=== PATIENT | female | born 2000 ===

== ENCOUNTER → 2024-04-08 | Outpatient (CLI) | payer OTHER ==
[2024-04-08 14:05] LABS: Source, Urine Clean Catch
[2024-04-08 16:47] LABS: Appearance, Urine Cloudy (Clear); Bilirubin, Urine Neg (Neg); Blood, Urine 1+ (Neg); Color, Urine Yellow (P-Yellow); Glucose Qualitative, Urine Neg (Neg); Ketones, Urine 2+ (Neg); Leukocyte Esterase, Urine Neg (Neg); Nitrite, Urine Neg (Neg); Protein, Urine 1+ (Neg); Urobilinogen, Urine NORM (Normal)
[2024-04-08 16:48] LABS: BASOPHILS ABSOLUTE AUTO 0.04 K/mm3 (0.00-0.23); BASOPHILS PERCENT AUTO 1 % (0-2); EOSINOPHILS ABSOLUTE AUTO 0.08 K/mm3 (0.00-0.68); EOSINOPHILS PERCENT AUTO 1 % (0-6); Hematocrit 37.5 % (33.0-51.0); Hemoglobin 12.8 g/dL (11.5-16.0); IMMATURE GRAN ABSOLUTE AUTO 0.02 K/mm3 (0.00-0.10); IMMATURE GRAN PERCENT AUTO 0 % (0-1); LYMPHOCYTES ABSOLUTE AUTO 1.72 K/mm3 (0.84-5.20); LYMPHOCYTES PERCENT AUTO 22 % (21-46); MONOCYTES ABSOLUTE AUTO 0.32 K/mm3 (0.16-1.47); MONOCYTES PERCENT AUTO 4 % (4-13); Mean Corpuscular HGB Conc 34.1 g/dL (31.5-36.5); Mean Corpuscular Volume 91 fL (80-100); NEUTROPHILS PERCENT AUTO 72 % (41-73); Platelet Count 320 K/mm3 (150-400); RDW Coefficient Variation 12.2 % (11.7-14.2); RDW Standard Deviation 40.2 fL (35.1-46.3); Red Blood Cell Count 4.13 M/mm3 (3.80-5.20); White Blood Cell Count 7.68 K/mm3 (4.00-11.30)
[2024-04-08 17:06] LABS: Bacteria Many /hpf; Red Blood Cells, Urine 0-2 /hpf (0-2); Squamous Epithelial Cells Few /hpf (Few); White Blood Cells, Urine 0-2 /hpf (0-5)
[2024-04-10 09:12] LABS: HEPATITIS B SURFACE ANTIGEN Negative (Negative)
[2024-04-10 10:31] LABS: HEPATITIS C AB CIA INTERP Negative (Negative); HEPATITIS C ANTIBODY CIA INDEX <0.02 IV
[2024-04-10 12:28] LABS: HIV 1,2 COMBO ANTIGEN/ANTIBODY Negative (Negative)
== END | disposition home or self-care (01) ==
LOC: LAB 14:02 → LAB SHORT 14:02
PROVIDERS: Registered Nurse Community Health
DX: Z34.91 Encounter for supervision of normal pregnancy, unspecified, first trimester (principal)
CPT/HCPCS: 81001; 83036; 84443; 86803; 87086; 87340; 87389

== ENCOUNTER → 2024-04-25 | Outpatient (CLI) | payer OTHER ==
[2024-04-28 10:12] LABS: APTIMA MEDIA TYPE Urine; C. TRACHOMATIS BY TMA Negative (Negative); N. GONORRHOEAE BY TMA Negative (Negative); SPECIMEN SOURCE Urine
== END | disposition home or self-care (01) ==
LOC: LAB SHORT 15:32 → LAB 15:32
PROVIDERS: Registered Nurse Community Health
DX: Z34.92 Encounter for supervision of normal pregnancy, unspecified, second trimester (principal)
CPT/HCPCS: 87491; 87591

== ENCOUNTER → 2024-09-24 | Outpatient (CLI) | payer OTHER | LOC: LAB 17:00 → LAB SHORT 17:00 | DX: O24.112 Pre-existing type 2 diabetes mellitus, in pregnancy, second trimester (principal) | CPT/HCPCS: 83036 ==

== ENCOUNTER → 2024-09-30 | Outpatient (CLI) | payer OTHER | END | disposition home or self-care (01) | LOC: LAB SHORT 11:49 → LAB 11:49 | DX: Z34.93 Encounter for supervision of normal pregnancy, unspecified, third trimester (principal) | CPT/HCPCS: 87081; 87150 ==

== ENCOUNTER 2024-10-21 03:15 | Inpatient (IN) | payer OTHER ==
[2024-10-21] VITALS (8 sets, daily range): BP systolic 113–133; BP diastolic 58–83
[~2024-10-21] VITALS: Ht 162.6 cm; Wt 118.1 kg
[2024-10-21] MEDS ORDERED: HYDROcodone 5-APAP 325 TAB PO ONE (05:25)
[2024-10-21] MEDS ORDERED: Misoprostol 200 MCG Tab BC PRN (07:50)
[2024-10-21] MEDS ORDERED: OXYTOCIN/RINGER'S LACTATE 500 ML IV PRN (07:50)
[2024-10-21] MEDS ORDERED: Methylergonovine Maleate 0.2MG / ML 1ML Amp IM PRN (07:50)
[2024-10-21] MEDS ORDERED: ePHEDrine Sulfate 50 MG/ML 1ML Injection XX PRN (07:50)
[2024-10-21] MEDS ORDERED: Carboprost Tromethamine 250 MCG/ML 1ML Amp IM PRN (07:50)
[2024-10-21] MEDS ORDERED: Oxytocin 10 Unit / ML Vial IM PRN (07:50)
[2024-10-21] MEDS ORDERED: Misoprostol 200 MCG Tab PR PRN (07:50)
[2024-10-21] MEDS ORDERED: FentaNYL 2mcg/ml-Bup 0.1% Epd 250 ML EPI PRN (07:50)
[2024-10-21] MEDS ORDERED: Ondansetron HCl 2 MG / ML 2ML Vial IV PRN (07:50)
[2024-10-21] MEDS ORDERED: Acetaminophen 500 MG Tab PO PRN (07:50)
[2024-10-21] MEDS ORDERED: Lactated Ringer's 1,000 ML IV PRN ×3 (07:50→07:55)
[2024-10-21] MEDS ORDERED: Calcium Carbonate 500 MG Tab Chew PO PRN (08:00)
[2024-10-21] MEDS ORDERED: Tranexamic Acid 100 ML IV PRN (08:00)
[2024-10-21 08:09] LABS: BASOPHILS ABSOLUTE AUTO 0.02 K/mm3 (0.00-0.23); BASOPHILS PERCENT AUTO 0 % (0-2); EOSINOPHILS ABSOLUTE AUTO 0.04 K/mm3 (0.00-0.68); EOSINOPHILS PERCENT AUTO 0 % (0-6); Hemoglobin 12.8 g/dL (11.5-16.0); IMMATURE GRAN ABSOLUTE AUTO 0.03 K/mm3 (0.00-0.10); IMMATURE GRAN PERCENT AUTO 0 % (0-1); LYMPHOCYTES ABSOLUTE AUTO 1.93 K/mm3 (0.84-5.20); LYMPHOCYTES PERCENT AUTO 19 % (21-46); MONOCYTES ABSOLUTE AUTO 0.61 K/mm3 (0.16-1.47); MONOCYTES PERCENT AUTO 6 % (4-13); Mean Corpuscular HGB 31.7 pg (26.0-34.0); Mean Corpuscular HGB Conc 34.6 g/dL (31.5-36.5); Mean Corpuscular Volume 92 fL (80-100); Mean Platelet Volume 9.8 fL (9.1-12.4); NEUTROPHILS ABSOLUTE AUTO 7.38 K/mm3 (1.96-9.15); NEUTROPHILS PERCENT AUTO 74 % (41-73); Platelet Count 272 K/mm3 (150-400); RDW Coefficient Variation 13.2 % (11.7-14.2); Red Blood Cell Count 4.04 M/mm3 (3.80-5.20); White Blood Cell Count 10.01 K/mm3 (4.00-11.30)
[2024-10-21] MEDS ORDERED: PRENATAL TABLE1 EAC2 PO (08:33)
[2024-10-21] MEDS ORDERED: SERT25 PO (08:34)
[2024-10-21] MEDS ORDERED: METF500 PO (08:34)
[2024-10-21] MEDS ORDERED: [UNRECOGNIZED DRUG - OTHER] PO (08:35)
[2024-10-21] MEDS ORDERED: Aspir 8181 MG PO (08:35)
[2024-10-21] MEDS ORDERED: FentaNYL Citrate 50 MCG/ML 2 ML Injection IV PRN (10:15)
[2024-10-21] MEDS ORDERED: Morphine Sulfate 10 MG/ML 1MLSYR IM ONE (13:15)
[2024-10-21] MEDS ORDERED: Promethazine HCl 25 MG Tab PO ONE (13:15)
[2024-10-21] MEDS ORDERED: Lactated Ringer's 1,000 ML IV SCH (19:15)
[2024-10-21] MEDS ORDERED: Zolpidem Tartrate 5 MG Tab PO PRN (19:15)
[2024-10-21] MEDS ORDERED: DiphenhydrAMINE HCl 50 MG Cap PO PRN (19:20)
[2024-10-21] MEDS ORDERED: MetFORMIN HCl 500 mg PO SCH (21:00)
[2024-10-21] MEDS ORDERED: Insulin NPH 100 Unit / ML 10ML Vial SC SCH (21:00)
[2024-10-22] VITALS (46 sets, daily range): BP systolic 78–138; BP diastolic 43–90
[2024-10-22] MEDS ORDERED: OXYTOCIN/RINGER'S LACTATE 500 ML IV SCH (06:00)
[2024-10-22 09:48] LABS: BASOPHILS ABSOLUTE AUTO 0.03 K/mm3 (0.00-0.23); BASOPHILS PERCENT AUTO 0 % (0-2); EOSINOPHILS ABSOLUTE AUTO 0.04 K/mm3 (0.00-0.68); EOSINOPHILS PERCENT AUTO 0 % (0-6); Hemoglobin 12.9 g/dL (11.5-16.0); IMMATURE GRAN ABSOLUTE AUTO 0.02 K/mm3 (0.00-0.10); IMMATURE GRAN PERCENT AUTO 0 % (0-1); LYMPHOCYTES ABSOLUTE AUTO 1.66 K/mm3 (0.84-5.20); LYMPHOCYTES PERCENT AUTO 17 % (21-46); MONOCYTES ABSOLUTE AUTO 0.47 K/mm3 (0.16-1.47); MONOCYTES PERCENT AUTO 5 % (4-13); Mean Corpuscular HGB Conc 33.1 g/dL (31.5-36.5); Mean Corpuscular Volume 94 fL (80-100); Mean Platelet Volume 9.9 fL (9.1-12.4); NEUTROPHILS ABSOLUTE AUTO 7.62 K/mm3 (1.96-9.15); NEUTROPHILS PERCENT AUTO 77 % (41-73); Platelet Count 259 K/mm3 (150-400); RDW Coefficient Variation 13.2 % (11.7-14.2); RDW Standard Deviation 45.2 fL (35.1-46.3); Red Blood Cell Count 4.16 M/mm3 (3.80-5.20); White Blood Cell Count 9.84 K/mm3 (4.00-11.30)
[2024-10-22 10:08] LABS: Albumin, Blood 2.7 g/dL (3.4-5.0); Albumin/Globulin Ratio 0.6 (0.8-1.8); Bilirubin, Total 0.2 mg/dL (0.1-1.0); Bun/Creatinine Ratio 11.3 (12.0-20.0); Calcium, Blood 9.1 mg/dL (8.5-10.1); Creatinine, Blood 0.53 mg/dL (0.40-1.00); Globulin, Blood 4.5 g/dL (2.2-4.0); Potassium, Blood 3.9 mmol/L (3.5-5.5); Total Protein, Blood 7.2 g/dL (6.4-8.2)
[2024-10-22] MEDS ORDERED: Insulin Human Regular 100 UNIT in NS 100 ML IV SCH (15:05)
--- NOTE | 2024-10-22 18:17 | NUR ---
ATTEMPTED IV IN R HAND WITH NO SUCCESS. ATTEMPTED POWER-GLIDE X2 IN R UPPER ARM. PT TOO PAINFUL.
[2024-10-22] MEDS ORDERED: Misoprostol 200 MCG Tab BC PRN (21:00)
[2024-10-22] MEDS ORDERED: Methylergonovine Maleate 0.2MG / ML 1ML Amp IM PRN (21:00)
[2024-10-22] MEDS ORDERED: Carboprost Tromethamine 250 MCG/ML 1ML Amp IM PRN (21:00)
[2024-10-22] MEDS ORDERED: Oxytocin 10 Unit / ML Vial IM PRN (21:00)
[2024-10-22] MEDS ORDERED: Ondansetron HCl 2 MG / ML 2ML Vial IV PRN (21:00)
[2024-10-22] MEDS ORDERED: Misoprostol 200 MCG Tab PR PRN (21:00)
[2024-10-22] MEDS ORDERED: Acetaminophen 500 MG Tab PO PRN (21:05)
[2024-10-22] MEDS ORDERED: Calcium Carbonate 500 MG Tab Chew PO PRN (21:05)
[2024-10-22] MEDS ORDERED: Tranexamic Acid 100 ML IV PRN (21:05)
[2024-10-23] VITALS (25 sets, daily range): BP systolic 93–132; BP diastolic 45–73
[2024-10-23] MEDS ORDERED: ZOLOFT25 MG PO (06:05)
[2024-10-23] MEDS ORDERED: Metoclopramide HCl 5MG / ML 2ML Vial IV ONE (07:10)
[2024-10-23] MEDS ORDERED: Citric Acid/Sodium Citrate 30 ML BTL PO SCH (07:10)
[2024-10-23] MEDS ORDERED: CeFAZolin Sodium 3,000 MG in NS 100 ML IV SCH (07:15)
[2024-10-23] MEDS ORDERED: EpiNEPhrine 1 MG/1 ML 1ML Vial ONE (07:31)
[2024-10-23] MEDS ORDERED: Lidocaine HCl 2% 10 ML SDA ONE (07:31)
[2024-10-23] MEDS ORDERED: FentaNYL Citrate 50 MCG/ML 2 ML Injection ONE (07:33)
[2024-10-23] MEDS ORDERED: propofoL 20 ML IV ONE (07:34)
[2024-10-23] MEDS ORDERED: Oxytocin 10 Unit / ML Vial ONE (07:37)
[2024-10-23] MEDS ORDERED: Midazolam HCl 1MG / ML 2ML Vial ONE (07:46)
[2024-10-23] MEDS ORDERED: Lactated Ringer's 1,000 ML IV ONE (08:06)
[2024-10-23] MEDS ORDERED: Methylergonovine Maleate 0.2MG / ML 1ML Amp ONE (08:12)
[2024-10-23] MEDS ORDERED: Phenylephrine HCl 100 MCG/ML-NS 10MLSYR (1MG/10ML) ONE ×2 (08:29→08:58)
[2024-10-23 08:32] LABS: PCO2 Cord - Arterial 71.9 mmHg (40-50)
[2024-10-23 08:35] LABS: PCO2 Cord - Venous 47.6 mmHg (40-50); pH Umbilical Cord - Venous 7.34 (7.26-7.35)
--- NOTE | 2024-10-23 08:57 | NUR ---
10/23/24 0857 Alla Bowers VIABLE BABY GIRL BORN AT 0814.
[2024-10-23] MEDS ORDERED: Azithromycin 500 MG in NS 250 ML IV SCH (09:00)
[2024-10-23] MEDS ORDERED: Morphine Sulfate/PF 1 MG/ML 10MLVIAL IV SCH (09:05)
[2024-10-23] MEDS ORDERED: OxyCODONE HCL 5 MG TAB PO PRN (09:35)
[2024-10-23] MEDS ORDERED: Magnesium Hydroxide Conc 10 ML UDC PO PRN (09:35)
[2024-10-23] MEDS ORDERED: OxyCODONE 5 mg/Acetamin 325 mg TABLET PO PRN (09:35)
[2024-10-23] MEDS ORDERED: Simethicone 80 MG Chew PO PRN (09:40)
[2024-10-23] MEDS ORDERED: Acetaminophen 500 MG Tab PO PRN (09:40)
[2024-10-23] MEDS ORDERED: Ketorolac Tromethamine 30mg Vial IV SCH (10:00)
[2024-10-23] MEDS ORDERED: Docusate Sodium 100 MG Cap PO SCH (21:00)
[2024-10-24 03:45] VITALS: BP 109/56
[2024-10-24 07:08] LABS: BASOPHILS ABSOLUTE AUTO 0.03 K/mm3 (0.00-0.23); BASOPHILS PERCENT AUTO 0 % (0-2); EOSINOPHILS ABSOLUTE AUTO 0.09 K/mm3 (0.00-0.68); EOSINOPHILS PERCENT AUTO 1 % (0-6); Hematocrit 28.6 % (33.0-51.0); Hemoglobin 9.6 g/dL (11.5-16.0); IMMATURE GRAN ABSOLUTE AUTO 0.04 K/mm3 (0.00-0.10); IMMATURE GRAN PERCENT AUTO 1 % (0-1); LYMPHOCYTES ABSOLUTE AUTO 1.24 K/mm3 (0.84-5.20); LYMPHOCYTES PERCENT AUTO 15 % (21-46); MONOCYTES ABSOLUTE AUTO 0.54 K/mm3 (0.16-1.47); MONOCYTES PERCENT AUTO 6 % (4-13); Mean Corpuscular HGB 31.7 pg (26.0-34.0); Mean Corpuscular HGB Conc 33.6 g/dL (31.5-36.5); Mean Corpuscular Volume 94 fL (80-100); Mean Platelet Volume 9.6 fL (9.1-12.4); NEUTROPHILS ABSOLUTE AUTO 6.61 K/mm3 (1.96-9.15); NEUTROPHILS PERCENT AUTO 77 % (41-73); Platelet Count 164 K/mm3 (150-400); RDW Coefficient Variation 13.4 % (11.7-14.2); RDW Standard Deviation 46.5 fL (35.1-46.3); Red Blood Cell Count 3.03 M/mm3 (3.80-5.20); White Blood Cell Count 8.55 K/mm3 (4.00-11.30)
[2024-10-24 07:45] VITALS: BP 106/54
[2024-10-24] MEDS ORDERED: Ibuprofen 400 MG Tab PO PRN ×2 (08:00→23:35)
[2024-10-24] MEDS ORDERED: Ibuprofen 400 MG Tab PO SCH (08:00)
[2024-10-24] MEDS ORDERED: Prenatal Vit/FE Fumarate/FA 1 Tab PO SCH (09:00)
[2024-10-24 11:54] VITALS: BP 116/62
[2024-10-24 16:23] VITALS: BP 109/57
[2024-10-24 21:10] VITALS: BP 126/76
[2024-10-24 23:28] VITALS: BP 136/62
[2024-10-25 04:52] VITALS: BP 103/58
[2024-10-25 07:53] VITALS: BP 116/58
== END 2024-10-25 15:45 | disposition home or self-care (01) | DRG 787 ==
LOC: OBS 03:15 → BC 03:17 → OBS 07:33 → BC 07:36
PROVIDERS: Advanced Practice Midwife; ADMIT Family Medicine
PROC: 10D00Z1 Extraction of Products of Conception, Low, Open Approach (ICD-10-PCS; principal; 2024-10-24)
DX: O24.425 Gestational diabetes mellitus in childbirth, controlled by oral hypoglycemic drugs (principal); O47.1 False labor at or after 37 completed weeks of gestation; O99.344 Other mental disorders complicating childbirth; F41.9 Anxiety disorder, unspecified; F32.A Depression, unspecified; O63.0 Prolonged first stage (of labor); O76 Abnormality in fetal heart rate and rhythm complicating labor and delivery; O99.214 Obesity complicating childbirth; O40.3XX0 Polyhydramnios, third trimester, not applicable or unspecified; O34.83 Maternal care for other abnormalities of pelvic organs, third trimester; N83.292 Other ovarian cyst, left side; O70.0 First degree perineal laceration during delivery; Z3A.39 39 weeks gestation of pregnancy; Z37.0 Single live birth; Z79.84 Long term (current) use of oral hypoglycemic drugs; Z79.82 Long term (current) use of aspirin; Z79.899 Other long term (current) drug therapy; Z79.4 Long term (current) use of insulin; Z87.891 Personal history of nicotine dependence; Z90.89 Acquired absence of other organs
CPT/HCPCS: 36415; 36416; 51702; 59025; 80053; 81003; 82803; 82947; 85025; 86850; 86900; 86901; 86923; 99214; A9270; J0171; J0690; J1815; J1885; J2003; J2210; J2250; J2270; J2371; J2590; J2704; J3010; J7120